=== PATIENT | female | born 1955 | race Caucasian/White ===

== ENCOUNTER 2020-02-11 07:02 | Emergency (ER) | payer MEDICARE, MEDICAID ==
[~2020-02-11] VITALS: Ht 172.7 cm; Wt 56.9 kg
[2020-02-11 08:02] VITALS: BP 115/68
== END 2020-02-11 08:52 | disposition home or self-care (01) ==
LOC: ER 07:02
DX: Z48.01 Encounter for change or removal of surgical wound dressing (principal)